=== PATIENT | female | born 1970 | race Caucasian/White ===

== ENCOUNTER 2017-12-02 09:05 | Emergency (ER) | payer OTHER ==
[~2017-12-02] VITALS: Ht 154.9 cm; Wt 85.7 kg
[~2017-12-02 09:05] MED LIST: ATORVASTATIN CA10 MG PO; CIPRO 500MG TA500 MG PO; CYCLOBENZAPRINE10 M1 PO; DIAZEPAM5 MG PO; FLOMAX(MONOGRA0.4 MG PO; GABAPENTIN100 MG PO; METFORMIN HCL500 M3 PO; NAPROXEN500 M2 PO; PERCOCET 325 MG1 TA2 PO; TOPAMAX100 M1 PO; ZOFRAN 4 MG TABL4 MG PO
[2017-12-02] MEDS ORDERED: LATUDA80 M1 PO (09:40)
--- NOTE | 2017-12-02 09:41 | ED DYSPNEA/ASTHMA COMPLAINT ---
History of Present Illness General Chief Complaint: Upper Respiratory Sx/Fever Stated Complaint: COUGH, RIB PAIN, X 3 WEEKS Source: patient Exam Limitations: no limitations Vital Signs & Intake/Output Vital Signs & Intake/Output Vital Signs Date Time Temp Pulse Resp B/P B/P Pulse O2 O2 Flow FiO2 Mean Ox Delivery Rate 12/02 1052 98.0 80 20 150/77 96 Room Air 12/02 0910 97.8 82 18 147/89 96 Room Air Allergies Coded Allergies: paroxetine (From PAXIL) (EMOTIONAL INSTABILITY 11/28/15) Reconcile Medications Lurasidone HCl (Latuda) 80 MG TABLET 1 TAB PO QPM MENTAL HEALTH (Reported) Topiramate (Topamax) 100 MG TABLET 1 TAB PO TID BIPOLAR (Reported) Triage Note: PT FROM HOME C/O "COLD HUBERT BEEN SICK FOR 3X WEEKS" PT STATES HER CHEST "HURTS" FROM COUGHING. PT STATES DRY COUGH. PT STATES "BACK PAIN FROM COUGHING, 2X WORSE THAN IT NORMALLY IS, YOU KNOW I HAVE FIBROMYALGIA NOW SO" PTS VSS. AFEBRILE. PT HAS EXTENSIVE PSYCH HX... Triage Nurses Notes Reviewed? yes HPI: Patient presents for evaluation of a persistent cough resulting in chest back and bilateral rib pain that began about 3 weeks ago. Patient states that the symptoms have waxed and waned over that time. Nothing seems to make her truly feel better. The patient does have a past history of asthma and continues to smoke roughly 1/2 pack of cigarettes per day. Other than occasional dyspnea ( last felt last night) the patient denies any associated leg pain leg swelling or recent travel fever or phlegm production. Patient states her son is beginning to get "sick". Patient's chest and back and rib pain get worse with coughing. Past History Travel History Traveled to [place] past 21 day No Medical History Any Pertinent Medical History? 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 History of MRSA: No History of VRE: No History of CDIFF: No Surgical History Surgical History: non-contributory Psychosocial History Who do you live with Family What is your primary language Portuguese Tobacco Use: Current Daily Use Daily Tobacco Use Amount/Type: => 5 Cigarettes daily Family History Family History, If Any: Relation not specified for: *No pertinent family history Hx Contributory? No Review of Systems Review of Systems Constitutional: Reports: no symptoms. EENTM: Reports: no symptoms. Respiratory: Reports: see HPI. Cardiovascular: Reports: no symptoms. GI: Reports: no symptoms. Genitourinary: Reports: no symptoms. Musculoskeletal: Reports: no symptoms. Skin: Reports: no symptoms. Neurological/Psychological: Reports: no symptoms. Hematologic/Endocrine: Reports: no symptoms. Immunologic/Allergic: Reports: no symptoms. All Other Systems: Reviewed and Negative Physical Exam Physical Exam Respiratory: SEE BELOW Comments: Gen.: Well-nourished, well-developed, no acute respiratory distress. Head: Normocephalic, atraumatic. Eyes: Normal inspection bilaterally Ears: Normal inspection bilaterally Nose: Normal inspection Throat/mouth : Moist mucosa Neck: Supple, full range of motion, no goiter Heart: Regular rate and rhythm, no murmurs rubs or gallops Lungs: Decreased air entry bilaterally otherwise Clear to auscultation Chest: Nontender Back: Normal range of motion Abdomen: Soft, nontender, nondistended, normal bowel sounds Extremities: Normal range of motion grossly, equal radial pulses, no cyanosis clubbing or edema, no tenderness Neurologic: Cranial nerves grossly intact, speech is clear Skin: warm and dry Psychiatric: Calm, cooperative, no apparent delusions or hallucinations Core Measures ACS in differential dx? No CVA/TIA Diagnosis No Sepsis Present: No Sepsis Focused Exam Completed? No Progress Differential Diagnosis: BRONCHITIS, PNEUMONIA, LUNG CANCER, SMOKER'S COUGH Plan of Care: Orders Procedure Date/time Status XRY-CHEST XRAY, TWO VIEWS 12/03 939 Active CXR Impression: PATIENT: GUSTAVO MORTON PRESENT AGE: 47 PATIENT ACCOUNT NO: [id number] : 70 LOCATION: [facility] ORDERING PHYSICIAN: Tommy Jordan MD SERVICE DATE: 12/02/17 EXAM TYPE: RAD - XRY-CHEST XRAY, TWO VIEWS EXAMINATION: XR CHEST CLINICAL INFORMATION: Cough. History of smoking. Pneumonia. COMPARISON: Chest radiograph 06/27/2017. TECHNIQUE: 2 views of the chest were obtained. FINDINGS: There is unchanged elevation of the left hemidiaphragm with adjacent subsegmental atelectasis. Mild right basilar subsegmental atelectasis is also seen. The right lung is clear. There is unchanged mild thickening of the central airways. There is no dense consolidation. No significant pleural effusion or pneumothorax. The osseous structures are intact. There are cholecystectomy clips in the right upper quadrant. IMPRESSION: No active disease in the chest. Bibasilar subsegmental atelectasis and thickening of the central airways. DICTATED BY: Elodia Billingsley MD DATE/TIME DICTATED:12/02/171037 SALES PROFESSIONAL:CHRISTIAN DATE/TIME TRANSCRIBED:12/02/171037 CONFIDENTIAL, DO NOT COPY WITHOUT APPROPRIATE AUTHORIZATION. <Electronically signed in Other Vendor System> SIGNED BY: Elodia Billingsley MD 12/02/17 1046 Initial ED EKG: none Comments: 12/02/2017 11:02:45 AM I have updated on on her chest x-ray report. I suspect she is suffering from chronic bronchitis secondary to cigarette smoking and potentially underlying bronchospastic lung disease. Plan MDI, prednisone and azithromycin. Patient counseled on smoking cessation. Departure Departure Disposition: HOME OR SELF CARE Condition: Stable Clinical Impression Primary Impression: Bronchitis Secondary Impressions: Encounter for smoking cessation counseling Referrals: Edmar HIGGINS,Getachew Reyna (PCP/Family) Additional Instructions: Azithromycin as prescribed. Take your metered-dose inhaler 2 puffs every 4-6 hours over the next 48 hours and then as needed. Prednisone as prescribed. Follow-up with your primary care physician on Thursday if not improving. Return if any concerns or sudden worsening. Please note that there might be incidental findings in your evaluation that are unrelated to the current emergency department visit. Please notify your primary care doctor about this emergency department visit in order to obtain and review all of the testing performed so that these incidental findings can be monitored as needed. If you're unable to follow up as outlined in the discharge instructions please return to the emergency department. Thank you for choosing the Emergency Department for your care. It was a pleasure to serve you today. Tommy Jordan M.D. [facility] Departure Forms: Customer Survey General Discharge Information Prescriptions: Current Visit Scripts Azithromycin (Zithromax) 1 DP PO AD #6 TAB 2 the first day followed by 1 for days 2-5 Prednisone (Deltasone) 3 TAB PO DAILY #15 TAB Critical Care Note Critical Care Note Critical Care Time: non-applicable
--- NOTE | 2017-12-02 10:46 | RADIOLOGY REPORT ---
EXAMINATION: XR CHEST CLINICAL INFORMATION: Cough. History of smoking. Pneumonia. COMPARISON: Chest radiograph 06/27/2017. TECHNIQUE: 2 views of the chest were obtained. FINDINGS: There is unchanged elevation of the left hemidiaphragm with adjacent subsegmental atelectasis. Mild right basilar subsegmental atelectasis is also seen. The right lung is clear. There is unchanged mild thickening of the central airways. There is no dense consolidation. No significant pleural effusion or pneumothorax. The osseous structures are intact. There are cholecystectomy clips in the right upper quadrant. IMPRESSION: No active disease in the chest. Bibasilar subsegmental atelectasis and thickening of the central airways.
[2017-12-02 10:52] VITALS: BP 150/77
[2017-12-02] MEDS ORDERED: ZITHROMAX250 M2 PO (11:06)
[2017-12-02] MEDS ORDERED: DELTASONE20 MG PO (11:06)
== END 2017-12-02 11:10 ==
LOC: ERH 09:05
DX: J40 Bronchitis, not specified as acute or chronic (principal); F17.210 Nicotine dependence, cigarettes, uncomplicated; R07.9 Chest pain, unspecified
CPT/HCPCS: 71046